=== PATIENT | male | born 1955 | race Two or more races ===

== ENCOUNTER 2017-03-02 14:39 | Emergency (ER) | payer MEDICAID ==
[~2017-03-02] VITALS: Ht 162.6 cm; Wt 70.3 kg
[2017-03-02 14:54] VITALS: BP 158/86
[2017-03-02] MEDS ORDERED: Albuterol ud Inhalation HHN ONE (15:15)
--- NOTE | 2017-03-02 15:50 | Emergency Room Report ---
History of Present Illness General Chief Complaint: Upper Respiratory Illness Source: Patient Present Illness HPI 61 YO Male presents to the ED c/o productive cough x 3 days, with nasal congestions, wheezing, and chills. he reports history of asthma he, denies abdominal pain, nausea or vomiting. he states that he prescribed Advair and he uses it regularly.Denies recent travel. reports several ill contacts. Denies neck pain/stiffness, photophobia. denies LE edema. Denies CP, Palpitations, LOC , AMS, dizziness, Changes in Vision, Sensation, paresthesias, or a sudden severe headache. Allergies: Coded Allergies: LATEX (Verified Allergy, Unknown, 03/02/17) Patient History Past Medical History: see triage record Past Surgical History: none Pertinent Family History: none Reviewed Nursing Documentation: PMH: Agreed, PSxH: Agreed Nursing Documentation-PMH Past Medical History: No History, Except For Hx Hypertension: Yes Hx Diabetes: Yes Review of Systems All Other Systems: negative except mentioned in HPI Physical Exam Vital Signs Date Time Temp Pulse Resp B/P (MAP) Pulse Ox O2 Delivery O2 Flow Rate FiO2 03/02/17 14:44 97.9 96 20 158/86 100 Room Air Sp02 EP Interpretation: reviewed, normal General Appearance: no apparent distress, alert, GCS 15, non-toxic Head: normocephalic, atraumatic Eyes: bilateral eye normal inspection, bilateral eye PERRL ENT: hearing grossly normal, normal pharynx, no angioedema, normal voice, uvula midline, nasal congestion Neck: full range of motion, supple/symm/no masses Respiratory: lungs clear, speaking full sentences, wheezing Cardiovascular #1: regular rate, rhythm, no edema, normal capillary refill Gastrointestinal: non tender, soft Rectal: deferred Musculoskeletal: back normal, gait/station normal, normal range of motion, non- tender Neurologic: alert, oriented x3, responsive, motor strength/tone normal, sensory intact, normal gait, speech normal Skin: normal color, no rash, warm/dry, well hydrated Lymphatic: no adenopathy Medical Decision Making PA Attestation Dr. Cardenas is my supervising Physician whom patient management has been discussed with. Diagnostic Impression: Primary Impression: Atypical pneumonia Additional Impression: Wheezing ER Course 61 YO Male presents to the ED c/o productive cough x 3 days, with nasal congestions, wheezing, and chills. he reports history of asthma he, denies abdominal pain, nausea or vomiting. he states that he prescribed Advair and he uses it regularly.Denies recent travel. reports several ill contacts. Denies neck pain/stiffness, photophobia. denies LE edema. Denies CP, Palpitations, LOC , AMS, dizziness, Changes in Vision, Sensation, paresthesias, or a sudden severe headache. Ddx considered but are not limited to URI, pneumonia, PE, strep pharyngitis, meningitis, bronchitis, TX just to name a few. Vital signs: Pt.is afebrile VS are WNL H&PE are most consistent with atypical pneumonia: Hx of asthma, productive cough , advanced age, and DM. ORDERS: none required at this time, the diagnosis is clinical ED INTERVENTIONS: -Albuterol HHN -I discussed with him that I will be discharging him with oral antibiotics treating him clinically for atypical pneumonia. I gave him very strict ED return precautions due to advanced age and severity of symptoms. DISCHARGE: At this time pt. is stable for d/c to home. Will provide printed patient care instructions, and any necessary prescriptions. Care plan and follow up instructions have been discussed with the patient prior to discharge. Last Vital Signs Date Time Temp Pulse Resp B/P (MAP) Pulse Ox O2 Delivery O2 Flow Rate FiO2 03/02/17 15:36 96 20 Room Air 03/02/17 15:30 100 03/02/17 14:44 97.9 158/86 Disposition: HOME, SELF-CARE Condition: Stable Scripts Azithromycin* (ZITHROMAX*) 250 Mg Tablet 250 MG ORAL DAILY for 5 Days, #6 TAB 0 Refills Prov: Amanda Matos P.A. 03/02/17 Acetaminophen* (TYLENOL EXTRA STRENGTH*) 500 Mg Tablet 500 MG ORAL Q6H Y for Mild Pain/Temp > 100.5, #20 TAB 0 Refills Prov: Amanda Matos P.A. 03/02/17 Loratadine (CLARITIN) 10 Mg Tab.rapdis 10 MG ORAL DAILY for 10 Days, #10 TAB Prov: Amanda Matos P.A. 03/02/17 Guaifenesin (Guaifenesin) 1,200 Mg Tab.er.12h 1200 MG PO BID, #20 TAB Prov: Amanda Matos P.A. 03/02/17 Codeine/Promethazine Hcl* (PROMETHAZINE-CODEINE SYRUP*) 118 Ml Syrup 5 ML ORAL Q6H Y for For Cough, #120 ML 0 Refills Prov: Amanda Matos 03/02/17 Patient Instructions: Upper Respiratory Infection, Adult Additional Instructions: Take medications as directed. Follow up with a Primary Care Provider in 3-5 days, even if your symptoms have resolved. --Please review list of primary care clinics, if you do not already have a primary care provider Return sooner to ED if new symptoms occur, or current symptoms become worse. Do not drink alcohol, drive, or operate heavy machinery while taking Cough Syrup as this may cause drowsiness. - Please note that this Emergency Department Report was dictated using [employer] technology software, occasionally this can lead to erroneous entry secondary to interpretation by the dictation equipment. Amanda Matos Mar 02, 2017 15:50
[2017-03-02] MEDS ORDERED: TYLENOL EXTRA500 MG ORAL (16:05)
[2017-03-02] MEDS ORDERED: GUAIFENESIN1200 MG PO (16:05)
[2017-03-02] MEDS ORDERED: AZITHROMYCIN250 MG ORAL (16:05)
[2017-03-02] MEDS ORDERED: CLARITIN10 M1 ORAL (16:05)
[2017-03-02] MEDS ORDERED: PROMETHAZINE-C118 M1 ORAL (16:05)
[2017-03-02 16:11] VITALS: BP 158/86
== END 2017-03-02 18:00 | disposition home or self-care (01) ==
LOC: EMR 16:14
DX: J18.9 Pneumonia, unspecified organism (principal); R09.81 Nasal congestion; J45.909 Unspecified asthma, uncomplicated; I10 Essential (primary) hypertension; E11.9 Type 2 diabetes mellitus without complications
CPT/HCPCS: 94640; 94664; 99284

== ENCOUNTER 2018-04-01 09:18 | Emergency (ER) | payer MEDICAID ==
[~2018-04-01] VITALS: Ht 167.6 cm; Wt 80.7 kg
[~2018-04-01 09:18] MED LIST: AZITHROMYCIN250 MG ORAL; CLARITIN10 M1 ORAL; GUAIFENESIN1200 MG PO; PROMETHAZINE-C118 M1 ORAL; TYLENOL EXTRA500 MG ORAL
[2018-04-01] MEDS ORDERED: ASPIR 8181 MG ORAL (09:30)
[2018-04-01] MEDS ORDERED: MONTELUKAST SODI5 MG ORAL (09:30)
[2018-04-01] MEDS ORDERED: POLYETHYLENE GL17 GM ORAL (09:30)
[2018-04-01] MEDS ORDERED: VENTOLIN HFA18 GM INH (09:30)
[2018-04-01] MEDS ORDERED: METFORMIN ER G500 MG PO (09:30)
[2018-04-01] MEDS ORDERED: ADVAIR 250/501 PUFFS INH (09:30)
[2018-04-01] MEDS ORDERED: BENAZEPRIL HCL20 MG ORAL (09:30)
[2018-04-01] MEDS ORDERED: LIPITOR80 MG ORAL (09:30)
[2018-04-01 09:31] VITALS: BP 142/73
--- NOTE | 2018-04-01 09:31 | NUR ---
ED Nurse Note: Pt came in due to SOB and asthma attack since last night. Pt state she is unable to sleep due to SOB. Pt is AAO x4, ambulatory woth SOB at rest. No audible wheezing. Sinus tach on monitor.
--- NOTE | 2018-04-01 09:34 | Emergency Room Report ---
History of Present Illness General Chief Complaint: Asthma Source: Patient, Medical Record Present Illness HPI 62-year-old male with a history of asthma, hypertension, heart disease, presents with 2 day history of cough, worse at night, and sensation that he is wheezing and his asthma is acting up, he tried home inhalers without relief, he' s not been on recent steroids, he reports he was intubated many years ago for asthma, he reports no fevers, no chills does report chest tightness that is diffuse and it's consistent with his asthma he reports it has not an unusual chest tightness and he feels like is very consistent with asthma, he denies hemoptysis, fevers, sputum production, hemoptysis, leg pain leg swelling, jaw pain, sweating, any other symptoms. Allergies: Coded Allergies: LATEX (Verified Allergy, Unknown, 03/02/17) Patient History Past Medical History: see triage record Reviewed Nursing Documentation: PMH: Agreed; PSxH: Agreed Nursing Documentation-PMH Hx Hypertension: Yes Hx Diabetes: Yes Review of Systems All Other Systems: negative except mentioned in HPI Physical Exam Vital Signs Date Time Temp Pulse Resp B/P (MAP) Pulse Ox O2 Delivery O2 Flow Rate FiO2 04/01/18 09:21 98.1 102 25 150/76 98 Room Air Sp02 EP Interpretation: reviewed, normal General Appearance: no apparent distress, alert, non-toxic Head: normocephalic Eyes: bilateral eye normal inspection, bilateral eye PERRL, bilateral eye EOMI ENT: normal ENT inspection, hearing grossly normal, normal pharynx, no angioedema, normal voice, moist mucus membranes Neck: normal inspection, full range of motion, supple, supple/symm/no masses Respiratory: chest non-tender, lungs clear, normal breath sounds, no rhonchi, no respiratory distress, no retraction, speaking full sentences, other - + prolonged exp phase, mild scant intermittent faint wheezing b/l bases, chest symmetrical, palpation of chest normal Cardiovascular #1: normal peripheral pulses, regular rate, rhythm Cardiovascular #2: 2+ radial (R), 2+ radial (L), 2+ dorsalis pedis (R), 2+ dorsalis pedis (L) Gastrointestinal: normal inspection, non tender, soft, no mass, no guarding, no rebound Rectal: deferred Genitourinary: normal inspection, no CVA tenderness Musculoskeletal: back normal, gait/station normal, normal range of motion, non- tender, no calf tenderness, Erin's Sign negative Neurologic: alert, responsive, 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, motor strength/tone normal, sensory intact, speech normal Psychiatric: judgement/insight normal, memory normal, mood/affect normal Skin: normal color, no rash, warm/dry, normal turgor Lymphatic: no adenopathy Medical Decision Making Diagnostic Impression: Primary Impression: Asthma attack ER Course Patient received multiple nebs, feels much better, was given prednisone, remainder of workup is unremarkable, do not suspect acute CHF, chest x-ray with no obvious evidence of pneumonia or fluid overload, troponin negative, EKG with no ischemic changes, will discharge with reassurance , albuterol, prednisone, PMD follow-up. EKG Diagnostic Results EKG Time: 09:40 EP Interpretation: no stemi Rate: normal Rhythm: NSR ST Segments: no acute changes ASA given to the pt in ED: No Rhythm Strip Diag. Results Rhythm Strip Time: 09:33 EP Interpretation: yes Rate: 104 Rhythm: NSR, no PVC's, no ectopy Chest X-Ray Diagnostic Results Chest X-Ray Diagnostic Results : Chest X-Ray Ordered: Yes # of Views/Limited/Complete: 1 View Indication: Shortness of Breath EP Interpretation: Yes Interpretation: no consolidation, no effusion, no pneumothorax, no acute cardiopulmonary disease Impression: No acute disease Electronically Signed by: Giuliano Chong MD Reevaluation Time: 10:32 lungs clear Last Vital Signs Date Time Temp Pulse Resp B/P (MAP) Pulse Ox O2 Delivery O2 Flow Rate FiO2 04/01/18 09:21 98.1 102 25 150/76 98 Room Air Status: improved Disposition: HOME, SELF-CARE Condition: Stable GIULIANO CHONG M.D Apr 01, 2018 09:34
[2018-04-01] MEDS: Ipratropium 0.02% Inh Soln 2.5ml UD HHN SCH ×3 (09:40→09:59)
[2018-04-01] MEDS: Albuterol ud Inhalation HHN SCH ×3 (09:40→09:59)
--- NOTE | 2018-04-01 09:45 | NUR ---
ED Nurse Note: RT at the bed side for breathing treatment.
[2018-04-01 09:53] LABS: EOSINOPHILS % (AUTO) 1.4 % (0.0-3.0); HEMATOCRIT 49.7 % (42.0-52.0); HEMOGLOBIN 16.7 G/DL (14.2-18.0); LYMPHOCYTES % (AUTO) 26.5 % (20.0-45.0); MEAN CORPUSCULAR VOLUME 93 FL (80-99); MONOCYTES % (AUTO) 6.1 % (1.0-10.0); PLATELET COUNT 250 K/UL (150-450); RED BLOOD COUNT 5.32 M/UL (4.70-6.10); RED CELL DISTRIBUTION WIDTH 11.5 % (11.6-14.8); WHITE BLOOD COUNT 10.1 K/UL (4.8-10.8)
[2018-04-01 10:01] LABS: ANION GAP 9 mmol/L (5-15); BLOOD UREA NITROGEN 16 mg/dL (7-18); CALCIUM 8.9 MG/DL (8.5-10.1); CARBON DIOXIDE 27 MMOL/L (21-32); CHLORIDE 101 MMOL/L (98-107); CREATININE 1.3 MG/DL (0.55-1.30); POTASSIUM 4.4 MMOL/L (3.5-5.1); SODIUM 137 MMOL/L (136-145)
--- NOTE | 2018-04-01 10:05 | Diagnostic Imaging Report ---
Indication: Shortness of breath Technique: One view of the chest Comparison: none Findings: Suboptimal inspiration. There is elevation of the left hemidiaphragm. The heart is borderline enlarged. There is equivocal minimal interstitial prominence. No focal airspace consolidation. No effusions Impression: Borderline cardiomegaly and equivocal minimal interstitial congestion. Correlate with clinical findings Low lung volumes
[2018-04-01 10:11] LABS: ALANINE AMINOTRANSFERASE 32 U/L (12-78); ALBUMIN 3.7 G/DL (3.4-5.0); ALKALINE PHOSPHATASE 70 U/L (46-116); ASPARTATE AMINO TRANSFERASE 18 U/L (15-37); BILIRUBIN,TOTAL 0.5 MG/DL (0.2-1.0)
--- NOTE | 2018-04-01 10:15 | NUR ---
ED Nurse Note: Pt reports improved breathing after the treatment. VSS. Lungs are clear.
[2018-04-01] MEDS ORDERED: PREDNISONE20 MG ORAL (10:33)
[2018-04-01] MEDS ORDERED: ALBUTEROL SULF8.5 GM INH (10:33)
[2018-04-01 10:40] VITALS: BP 128/69
--- NOTE | 2018-04-01 10:40 | NUR ---
ED Nurse Note: Pt cleared by ER MD for discharge. ACI/prescription was given and explained to pt and verbalized understanding of teachings. All medical devices such as ID band/IV removed. Pt is AAO x4, ambulatory with steady gait and left with all belongings.
== END 2018-04-01 10:40 | disposition home or self-care (01) ==
LOC: EMR 09:47
DX: J45.909 Unspecified asthma, uncomplicated (principal); Z91.040 Latex allergy status; I10 Essential (primary) hypertension; E11.9 Type 2 diabetes mellitus without complications
CPT/HCPCS: 36415; 71045; 80053; 83880; 84484; 85025; 93005; 94640; 94664; 99284; J7512